=== PATIENT | female | born 1995 | race Caucasian/White ===

== ENCOUNTER 2018-10-27 14:48 | Inpatient (IN) | payer OTHER ==
[2018-10-27] MEDS ORDERED: LACTATED RINGERS 500 ML IV ONE (16:52)
--- NOTE | 2018-10-27 19:07 | Ultrasound Report ---
FINAL REPORT EXAM: US OB LIMITED HISTORY: LANDEN, presentation COMPARISON: None available. TECHNIQUE: Several real-time grayscale and color Doppler images were obtained. FINDINGS: Limited exam performed. Single live IUP demonstrated. heart rate 143 beats per minute. pr esentation cephalic. Placenta location anterior. No placenta previa. LANDEN within normal limits 9.4 byron timeters. IMPRESSION: Limited exam performed. Normal LANDEN. Cephalic presentation. No placental abnormality.
[2018-10-27] MEDS ORDERED: AMPICILLIN/NS 2 GM/100 ML 2 GM/100 ML BAG IV ONE (19:46)
[2018-10-27] MEDS ORDERED: BRETHINE IVP PRN (19:46)
[2018-10-27] MEDS ORDERED: BRETHINE SUB-Q PRN (19:46)
[2018-10-27] MEDS ORDERED: XYLOCAINE 2% INFILTRATI ONE (19:46)
[2018-10-27] MEDS ORDERED: STADOL IV PRN (19:46)
[2018-10-27] MEDS ORDERED: MINERAL OIL PO PRN (19:46)
[2018-10-27] MEDS ORDERED: PITOCin/NS 20 UNIT/1000ML DRIP 20 UNITS/1,000 ML BAG IV SCH (20:00)
[2018-10-27] MEDS: LACTATED RINGERS 1,000 ML IV SCH (20:08)
[2018-10-27 20:30] LABS: Hematocrit 31.8 % (30.3-42.9); Mean Corpuscular HGB Conc 32 % (30-34); Mean Corpuscular Volume 84 fl (79-97); Platelet Count 260 K/mm3 (140-440); Red Cell Distribution Width 16.7 % (13.2-15.2)
[2018-10-28] MEDS: LACTATED RINGERS 1,000 ML IV SCH (00:06)
[2018-10-28] MEDS: AMPICILLIN/NS 1 GM/50 ML 1 GM/50 ML BAG IV SCH ×4 (02:43→14:00)
[2018-10-28] MEDS: PITOCin/NS 30 UNIT/500ML 30 UNITS/500 ML BAG IV SCH ×2 (10:23→11:23)
--- NOTE | 2018-10-28 13:45 | History and Physical Report ---
History of Present Illness Date of examination: 10/28/18 Date of admission: 10/27/18 21:01 Chief complaint: contractions History of present illness: 23y/o @ 35+3 weeks presents in active labor with advanced cervical dilation and rupture of membranes. The patient initiated care @ 11 weeks ega. Her course has been uncomplicated. GBS status is unknown. Past History Past Medical History: GERD Past Surgical History: no surgical history Social history: single - Obstetrical History Expected Date of Delivery: 11/29/18 Actual Gestation: 35 Week(s) 6 Day(s) : 2 Para: 1 Hx # Term Pregnancies: 1 Number of Pregnancies: 0 Spontaneous Abortions: 0 Induced : 0 Number of Living Children: 1 Medications and Allergies Allergies Allergy/AdvReac Type Severity Reaction Status Date / Time No Known Allergies Allergy Verified 06/26/14 23:48 Home Medications Medication Instructions Recorded Confirmed Last Taken Type Multivitamin Tablet 1 tab PO QDAY 10/27/18 10/27/18 Unknown History Ferrous Sulfate 325 mg PO BID #30 tablet. 10/29/18 Unknown Rx Ibuprofen [Motrin] 600 mg PO Q8H PRN #30 tablet 10/29/18 Unknown Rx oxyCODONE /ACETAMINOPHEN [Percocet 1 tab PO Q6HR PRN #30 tablet 10/29/18 Unknow n Rx 5/325] Active Meds: Active Medications Butorphanol Tartrate (Stadol) 2 mg IV Q2H PRN PRN Reason: Pain , Severe (7-10) Last Admin: 10/28/18 13:38 Dose: 2 mg Documented by: Ephedrine Sulfate (Ephedrine Sulfate) 10 mg IV Q2M PRN PRN Reason: Hypotension Ampicillin Sodium (Ampicillin/Ns 1 Gm/50 Ml) 1 gm in 50 mls @ 100 mls/hr IV Q4HR KALEY; Protocol Last Admin: 10/28/18 10:00 Dose: 100 mls/hr Documented by: Lactated Ringer's (Lactated Ringers) 1,000 mls @ 125 mls/hr IV DIRECT KALEY Last Admin: 10/28/18 00:06 Dose: 125 mls/hr Documented by: Oxytocin/Sodium Chloride (Pitocin/Ns 20 Unit/1000ml Drip) 20 units in 1,000 mls @ 125 mls/hr IV DIRECT KALEY Oxytocin/Sodium Chloride (Pitocin/Ns 30 Unit/500ml) 30 units in 500 mls @ 4 mls/hr IV TITR KALEY; Protocol Last Admin: 10/28/18 11:23 Dose: 8 ml/hr, 8 mls/hr Documented by: Mineral Oil (Mineral Oil) 30 ml PO QHS PRN PRN Reason: Constipation Terbutaline Sulfate (Brethine) 0.25 mg SUB-Q ONCE PRN PRN Reason: Hyperstimulation/Hypertonicity Terbutaline Sulfate (Brethine) 0.25 mg IVP ONCE PRN PRN Reason: Hyperstimulation/Hypertonicity Review of Systems All systems: negative Genitourinary: leakage of fluid, contractions - Vital Signs Vital signs: Vital Signs Temp Resp 98.7 F 16 10/27/18 15:53 10/27/18 15:53 Temp Pulse Resp BP Pulse Ox 98.2 F 95 H 18 122/69 97 10/28/18 08:33 10/28/18 13:27 10/28/18 13:38 10/28/18 13:27 10/28/18 10:01 - Physical Exam Breasts: Positive: deferred Cardiovascular: Regular rate Lungs: Positive: Clear to auscultation Results Result Diagrams: 10/29/18 02:58 Abnormal lab results 10/27/18 Range/Units 20:08 Hgb 10.0 L (10.1-14.3) gm/dl MCH 26 L (28-32) pg RDW 16.7 H (13.2-15.2) % All other labs normal. Assessment and Plan - Patient Problems (1) labor Status: Acute Plan to address problem: admit for labor (2) premature rupture of membranes Status: Acute
[2018-10-28] MEDS ORDERED: NORCO 5/325 PO PRN (14:25)
[2018-10-28] MEDS ORDERED: PHENERGAN PR PRN (14:25)
[2018-10-28] MEDS ORDERED: MILK OF MAGNESIA PO PRN (14:25)
[2018-10-28] MEDS ORDERED: TYLENOL PO PRN (14:25)
[2018-10-28] MEDS ORDERED: PHENERGAN PO PRN (14:25)
[2018-10-28] MEDS ORDERED: LANSINOH TP PRN (14:25)
[2018-10-28] MEDS ORDERED: ZOFRAN IV PRN (14:25)
[2018-10-28] MEDS ORDERED: BENADRYL PO PRN (14:25)
[2018-10-28] MEDS ORDERED: DULCOLAX PR PRN (14:25)
[2018-10-28] MEDS ORDERED: TUCKS PAD TP PRN (14:25)
[2018-10-28] MEDS ORDERED: SODIUM CHLORIDE FLUSH SYRINGE 10 ML IV SCH (15:00)
[2018-10-28] MEDS: IBUPROFEN PO SCH (17:24)
--- NOTE | 2018-10-28 22:26 | Procedure Note ---
OB Delivery Note - Delivery Date of Delivery: 10/28/18 Surgeon: ASIA FISHER Estimated blood loss: 200cc - Vaginal Delivery presentation: vertex Delivery position: OA Intrapartum events: labor-<37 weeks, PROM->1hr before delivery Delivery augmentation: pitocin Delivery monitor: external FHT Route of delivery: Delivery placenta: spontaneous Delivery cord: 3 umbilical vessels Episiotomy: none Delivery laceration: 1st degree Anesthesia: none Delivery comments: Patient had a precipitous delivery of a liveborn male with apgars of 8/9. The delivery of the was performed by nursing. Peds was called to the delivery secondary to prematurity. The placenta delivered spontaneously intact with a 3VC. The patient sustained a first degree laceration left unrepaired. The weighed 2.69kg. Ebl 200ml - Infant A at 1 minute: 8 at 5 minutes: 9 Gender: Male (weight 2.69kg)
[2018-10-29] MEDS: IBUPROFEN PO SCH ×4 (00:19→17:59)
[2018-10-29 03:37] LABS: Hematocrit 27.6 % (30.3-42.9)
[2018-10-29] MEDS ORDERED: BOOSTRIX IM ONE (06:30)
--- NOTE | 2018-10-29 13:44 | Progress Note ---
Assessment and Plan A/P PPD 1 s/p delivery routine PP care Subjective - Subjective Date of service: 10/29/18 Principal diagnosis: s/p Patient reports: appetite normal, voiding normally, pain well controlled, fla tus, ambulating normally : in NICU Objective - Vital Signs Latest vital signs: Vital Signs Temp Pulse Resp BP BP Pulse Ox 10/29/18 12:04 98.1 F 91 H 18 116/71 10/29/18 08:14 99 F 80 18 95/57 10/28/18 20:50 97.6 F 83 18 113/73 10/28/18 16:50 98.8 F 91 H 18 109/67 10/28/18 16:07 73 110/67 10/28/18 16:06 89 97 10/28/18 16:05 89 18 110/67 97 10/28/18 16:01 86 96 10/28/18 15:56 86 96 10/28/18 15:52 85 101/59 10/28/18 15:51 86 96 10/28/18 15:46 82 95 10/28/18 15:41 86 96 10/28/18 15:37 85 102/61 10/28/18 15:36 100 H 96 10/28/18 15:35 100 H 18 102/61 96 10/28/18 15:31 87 95 10/28/18 15:26 93 H 97 10/28/18 15:22 81 104/61 10/28/18 15:21 91 H 97 10/28/18 15:20 91 H 18 104/61 97 10/28/18 15:16 80 97 10/28/18 15:11 76 97 10/28/18 15:07 77 105/65 10/28/18 15:06 84 96 10/28/18 15:05 84 18 105/65 96 10/28/18 15:01 90 98 10/28/18 14:56 82 98 10/28/18 14:52 83 106/63 10/28/18 14:51 80 98 10/28/18 14:50 80 18 106/63 98 10/28/18 14:46 81 97 10/28/18 14:41 78 98 10/28/18 14:37 87 121/65 10/28/18 14:36 92 H 98 10/28/18 14:35 98.1 F 92 H 18 121/65 98 10/28/18 14:12 69 104/58 Intake and Output 10/28/18 10/29/18 10/29/18 23:59 07:59 15:59 Intake Total 400 360 440 Output Total 350 400 Balance 50 -40 440 Intake: Oral 400 440 Intake, Free Water 360 Output: Urine 350 400 Void 350 400 Other: Total, Intake Amount 400 320 Total, Output Amount 100 400 # Voids Void 2 1 - Exam Breasts: Present: normal Cardiovascular: Present: Regular rate, Normal S1 Lungs: Present: Clear to auscultation, Normal air movement Abdomen: Present: normal appearance, soft, normal bowel sounds. Absent: distention, tenderness, guarding Uterus: Present: normal, firm, fundal height below umbilicus. Absent: bogginess Extremities: Present: normal Deep Tendon Reflex Grade: Normal +2 Incision: Present: normal - Labs Labs: Abnormal lab results 10/29/18 Range/Units 02:58 Hgb 9.0 L (10.1-14.3) gm/dl Hct 27.6 L (30.3-42.9) %
[2018-10-30] MEDS: IBUPROFEN PO SCH ×4 (00:19→17:46)
--- NOTE | 2018-10-30 13:28 | Progress Note ---
Assessment and Plan A/P PPD 2 s/p delivery routine PP care discharge home today Subjective - Subjective Date of service: 10/30/18 Principal diagnosis: s/p Patient reports: appetite normal, voiding normally, pain well controlled, flatus, ambulating normally [place]: doing well Objective - Vital Signs Latest vital signs: Vital Signs Temp Pulse Resp BP BP Pulse Ox 10/30/18 08:09 98.3 F 92 H 18 107/65 95 10/30/18 00:00 97.9 F 90 18 105/57 10/29/18 16:39 98.4 F 87 22 108/70 98 Intake and Output 10/29/18 10/30/18 10/30/18 23:59 07:59 15:59 Intake Total 240 240 Balance 240 240 Intake: Oral 240 240 Other: Total, Intake Amount 240 240 # Voids Void 1 1 - Exam Breasts: Present: normal Cardiovascular: Present: Regular rate, Normal S1 Lungs: Present: Clear to auscultation, Normal air movement Abdomen: Present: normal appearance, soft, normal bowel sounds. Absent: distention, tenderness, guarding Vulva: both: normal Uterus: Present: normal, firm, fundal height below umbilicus. Absent: bogginess, tenderness Extremities: Present: normal Deep Tendon Reflex Grade: Normal +2
--- NOTE | 2018-10-30 13:29 | Discharge Summary ---
Providers - Providers Date of Admission: 10/27/18 21:01 Date of discharge: 10/30/18 Attending physician: ASIA FISHER Primary care physician: ASIA FISHER Hospitalization Reason for admission: labor Delivery: Episiotomy: none Laceration: none Incision: normal, dry, intact complications: none Discharge diagnosis: delivery [place] baby: male Hospital course: patietn delivered . Did well Discharged home PPD2 f/u in 4 weeks Condition at discharge: Good Disposition: DC-01 TO HOME OR SELFCARE Plan - Discharge Medications Prescriptions: Ferrous Sulfate 325 mg PO BID #30 tablet. Ibuprofen [Motrin] 600 mg PO Q8H PRN #30 tablet PRN Reason: Pain oxyCODONE /ACETAMINOPHEN [Percocet 5/325] 1 tab PO Q6HR PRN #30 tablet PRN Reason: Pain - Provider Discharge Summary Additional instructions: [] Smoking cessation referral if applicable(refer to patient education folder for contact #) [] Refer to [facility] Booklet Call your doctor immediately for: * Fever > 100.5 * Heavy vaginal bleeding ( >1 pad per hour) * Severe persistent headache * Shortness of breath * Reddened, hot, painful area to leg or breast * Drainage or odor from incision. * Keep incision clean and dry at all times and follow doctor's instructions regarding bathing/showering - Follow up plan Follow up: ASIA FISHER MD [Primary Care Provider] - 7 Days
[2018-10-31] MEDS: IBUPROFEN PO SCH ×2 (01:10→12:28)
[2018-10-31 10:14] VITALS: BP 108/63
== END 2018-10-31 14:30 | disposition home or self-care (01) | DRG 775 ==
LOC: TRG 14:48 → LD 21:01 → OB 10-28 17:04
PROVIDERS: ADMIT Obstetrics & Gynecology; ATTEND Obstetrics & Gynecology
PROC: 10E0XZZ Delivery of Products of Conception, External Approach (ICD-10-PCS; principal; 2018-10-28)
DX: O60.14X0 Preterm labor third trimester with preterm delivery third trimester, not applicable or unspecified (principal); O42.913 Preterm premature rupture of membranes, unspecified as to length of time between rupture and onset of labor, third trimester; O62.3 Precipitate labor; K21.9 Gastro-esophageal reflux disease without esophagitis; O99.62 Diseases of the digestive system complicating childbirth; O70.0 First degree perineal laceration during delivery; Z37.0 Single live birth; Z3A.35 35 weeks gestation of pregnancy; Z79.899 Other long term (current) drug therapy
CPT/HCPCS: 36415; 76815; 85014; 85018; 85027; 86592; 86850; 86900; 86901; 90471; 90715; G0378; A6250; J0290; J0595; J2590; J7120